=== PATIENT | male | born 1955 | race Caucasian/White ===

== ENCOUNTER 2018-10-15 21:59 | Emergency (ER) | payer MEDICAID, SELFPAY | END 2018-10-15 22:05 | disposition left against medical advice (07) | LOC: M ED 21:59 | DX: Z53.29 Procedure and treatment not carried out because of patient's decision for other reasons (principal) ==

== ENCOUNTER 2023-02-07 10:28 | Emergency (ER) | payer OTHER, MEDICARE, MEDICAID ==
[~2023-02-07] VITALS: Ht 177.8 cm; Wt 69.6 kg
[2023-02-07 10:28] VITALS: BP 159/75; TEMP 98.9
[2023-02-07 10:38] VITALS: O2SAT 94
== END 2023-02-07 12:37 | disposition left against medical advice (07) ==
LOC: M ED 10:28
DX: Z53.21 Procedure and treatment not carried out due to patient leaving prior to being seen by health care provider (principal)

== ENCOUNTER 2023-02-21 22:56 | Emergency (ER) | payer MEDICARE, MEDICAID ==
[~2023-02-21] VITALS: Ht 170.2 cm; Wt 63.5 kg
[2023-02-21] MEDS ORDERED: MIDAZOLAM INJ 2MG/2ML VIAL IV STA (23:05)
[2023-02-21] MEDS ORDERED: MIDAZOLAM INJ 2MG/2ML VIAL As Ordered ONE (23:06)
[2023-02-21] MEDS ORDERED: methylPREDNISolone 125MG 2ML VIAL IV ONE (23:10)
[2023-02-21] MEDS ORDERED: propofoL 1,000 MG in IV 1 EA IV SCH (23:25)
[2023-02-21 23:30] LABS: HEMATOCRIT 56.3 % (42.0-52.0); HEMOGLOBIN 17.4 g/dl (13.5-17.5); MEAN CORPUSCULAR HEMOGLOBIN 29.1 pg (27.0-33.0); MEAN CORPUSCULAR HGB CONC 30.9 g/dl (32.0-36.5); MEAN CORPUSCULAR VOLUME 94.1 fl (80.0-96.0); PLATELET COUNT, AUTOMATED 406 10^3/uL (150-450); RED BLOOD COUNT 5.98 10^6/uL (4.30-6.10); WHITE BLOOD COUNT 14.5 10^3/uL (4.0-10.0)
[2023-02-21] MEDS ORDERED: CEFEPIME HCL 2 GM in D5W MINI-BAG PLUS 50 ML IV ONE (23:40)
[2023-02-21] MEDS ORDERED: NS 1,000 ML IV ONE (23:40)
[2023-02-21] MEDS ORDERED: ACETAMINOPHEN *IV* 1,000 MG in IV 1 EA IV ONE (23:40)
[2023-02-21 23:43] LABS: ABG BASE EXCESS -11.2 (-2.0-2.0); ABG HCO3 16.7 MMOL/L (22.0-26.0); ABG O2 SATURATION 93.7 % (95.0-99.0); ABG PARTIAL PRESSURE CO2 44.6 mmHg (35.0-45.0); ABG PARTIAL PRESSURE O2 79.6 mmHg (75.0-100.0); ABG STANDARD HCO3 15.8 MMOL/L. (22.0-26.0); ABG TOTAL CO2 18.1 MMOL/L (23.0-31.0)
[2023-02-21 23:47] LABS: ABG pH (ARTERIAL) 7.192 UNITS (7.350-7.450)
[2023-02-22 00:01] LABS: RSV AMPLIFICATION NEGATIVE (NEGATIVE)
[2023-02-22 00:04] LABS: ETHYL ALCOHOL (ETHANOL) < 0.003 % (0.000-0.010)
[2023-02-22 00:06] LABS: ALBUMIN 3.1 G/DL (3.2-5.2); ALKALINE PHOSPHATASE 131 U/L (46-116); ALT/SGPT 124 U/L (7.0-40); AST/SGOT 178 U/L (<34); BILIRUBIN,DIRECT < 0.1 MG/DL (<0.4); BILIRUBIN,TOTAL 0.3 MG/DL (0.3-1.2); BLOOD UREA NITROGEN 48 MG/DL (9-23); CALCIUM LEVEL 8.6 MG/DL (8.3-10.6); CARBON DIOXIDE LEVEL 17 MMOL/L (20-31); CHLORIDE LEVEL 100 MMOL/L (98-107); GLOMERULAR FILTRATION RATE 20.7 (>49); GLUCOSE, FASTING 99 MG/DL (74-106); SALICYLATE LEVEL < 3.0 MG/DL (<30); SODIUM LEVEL 140 MMOL/L (136-145); THYROID STIMULATING HORMONE 4.403 uIU/ML (0.55-4.78); TOTAL PROTEIN 7.5 G/DL (5.7-8.2)
[2023-02-22] MEDS ORDERED: DEXTROSE 50% 50ML SYRINGE IV STA (00:17)
[2023-02-22 00:19] LABS: BARBITURATES URINE NEGATIVE (NEGATIVE); BENZODIAZEPINES URINE NEGATIVE (NEGATIVE); COCAINE METABOLITE URINE NEGATIVE (NEGATIVE); METHADONE URINE NEGATIVE (NEGATIVE); OPIATES URINE NEGATIVE (NEGATIVE); PHENCYCLIDINE URINE NEGATIVE (NEGATIVE)
[2023-02-22 00:20] LABS: AMPHETAMINES LEVEL URINE POSITIVE (NEGATIVE); CANNABINOIDS URINE POSITIVE (NEGATIVE)
[2023-02-22 00:22] LABS: ANISOCYTOSIS 1+; ATYPICAL LYMPH 2 % (0-5); BASOPHILS 1 % (0-1); LYMPHOCYTES 6 % (16-44); METAMYELOCYTES 1 % (0-0); MONOCYTES 6 % (0-5); NEUTROPHILS 68 % (28-66); PLATELET ESTIMATE INCREASED (NORMAL)
[2023-02-22 00:23] LABS: CPK CREATINE PHOSPHOKINASE 2194 U/L (46-171); MB/CK RELATIVE INDEX 2.18 (< OR =4)
[2023-02-22] MEDS ORDERED: ETOMIDATE INJ 20MG/10ML VIAL IV STA (00:24)
[2023-02-22] MEDS ORDERED: SUCCINYLCHOLINE INJ 200MG/10ML VIAL IV STA (00:24)
[2023-02-22] MEDS ORDERED: NS 910 ML in IV 1 EA IV ONE (00:40)
[2023-02-22] MEDS ORDERED: CALCIUM GLUCONATE 1,000 MG in D5W MINI-BAG PLUS 100 ML IV ONE (01:00)
[2023-02-22] MEDS ORDERED: HumuLIN R (REGULAR) INSULIN (NovoLIN R) **100U/ML** PER UNIT IV ONE (01:00)
[2023-02-22] MEDS ORDERED: MIDAZOLAM 100MG/100ML-0.9%NACL 100 MG in IV 1 EA IV SCH (01:20)
[2023-02-22 02:03] VITALS: O2SAT 99
[2023-02-22 02:20] VITALS: TEMP 99.1
[2023-02-22 02:30] VITALS: O2SAT 99
[2023-02-22 02:35] VITALS: BP 135/73
[2023-02-22] MEDS ORDERED: propofoL 1,000 MG in IV 1 EA IV SCH (02:45)
[2023-02-22] MEDS ORDERED: SODIUM BICARBONATE 150 MEQ in D5W 1,000 ML IV SCH (03:00)
== END 2023-02-22 03:03 | disposition short-term general hospital (02) ==
LOC: M ED 22:56
DX: J96.90 Respiratory failure, unspecified, unspecified whether with hypoxia or hypercapnia (principal); N17.9 Acute kidney failure, unspecified; G93.6 Cerebral edema; A40.3 Sepsis due to Streptococcus pneumoniae; I67.9 Cerebrovascular disease, unspecified; E87.5 Hyperkalemia; J44.9 Chronic obstructive pulmonary disease, unspecified; F17.200 Nicotine dependence, unspecified, uncomplicated; F19.10 Other psychoactive substance abuse, uncomplicated
CPT/HCPCS: 31500; 36600; 51701; 51702; 70450; 71045; 71250; 74176; 80047; 80048; 80076; 80143; 80307; 81001; 82077; 82140; 82550; 82553; 82803; 83605; 84443; 84484; 85025; 87040; 87086; 87631; 93005; 93041; 94760; 96365; 96368; 96375; 99285; J0131; J0330; J0612; J0692; J1815; J2250; J2930